=== PATIENT | female | born 1975 | race Caucasian/White ===

== ENCOUNTER → 2019-07-18 | Outpatient (CLI) | payer OTHER ==
--- NOTE | 2019-07-18 12:06 | MM ---
Reason for exam: screening (asymptomatic). Baseline mammogram. History: Took hormonal contraceptives for 2 years beginning at age 28. Physical Findings: Nurse Summary: 0.5-1.5cm nodule in the left breast at 11 o'clock and 3 o'clock (nurse kp). MG Screening Mammo w CAD Bilateral CC and MLO view(s) were taken. The breast tissue is heterogeneously dense. This may lower the sensitivity of mammography. No suspicious abnormality. These results were verbally communicated with the patient and result sheet given to the patient on 07/18/19. ASSESSMENT: Incomplete: need additional imaging evaluation, BI-RAD 0 RECOMMENDATION: Ultrasound of the left breast. (palpables)
--- NOTE | 2019-07-18 12:09 | USB ---
Reason for exam: additional evaluation requested from abnormal screening. History: Took hormonal contraceptives for 2 years beginning at age 28. Physical Findings: Breast exam preformed at baseline screening. US Breast Workup Limited LT Technologist: Connie Rosario Left limited breast ultrasound including focal area of concern, retroareolar and axilla demonstrates a 0.6 x 0.4 x 0.3cm intraductal debris versus mass at 3 o'clock, flow noted internally therefore biopsy recommended, a 1.7 x 1.5 x 0.5cm oval lipoma versus lobe, benign at 3 o'clock and a 0.5 x 0.5 x 0.4cm solid, mixed lesion at 11 o'clock palpable, biopsy recommended. These results were verbally communicated with the patient and result sheet given to the patient on 07/18/19. ASSESSMENT: Suspicious, BI-RAD 4 RECOMMENDATION: Ultrasound core biopsy of the left breast. Called Dr. Camargo's office with mammographic findings and has scheduled an appointment for the patient for 07/29/19 at 10:[address] Voss. Biopsy scheduled for 08/16/19 at 12:20. PRELIMINARY REPORT CALLED AND FAXED TO DR. VOSS ON 07/18/19.
== END | disposition home or self-care (01) ==
LOC: RADMAMWWP 08:14
PROVIDERS: ATTEND Family Medicine
DX: Z12.31 Encounter for screening mammogram for malignant neoplasm of breast (principal); R92.8 Other abnormal and inconclusive findings on diagnostic imaging of breast
CPT/HCPCS: 77067

== ENCOUNTER → 2019-07-28 | Outpatient (CLI) | payer OTHER ==
[2019-07-28 07:44] VITALS: BP 119/73; PULSE 60; RESP 16; TEMP 98.6
--- NOTE | 2019-07-28 08:36 | P.GSHP ---
History of Present Illness H&P Date: 07/28/19 Chief Complaint: abnormal ultrasound left breast Melvi is seen in consultation for DR. Camargo regarding an abnromal ultrasound of the left breast. Melvi is a 44-year-old white female status post bilateral mammogram on 2319. The tissues were felt to be dense and ultrasound of the left breast was recommended secondary to nurse noting a palpable nodule in the 11:00 and 3 o'clock position. Ultrasound revealed a 0.6 cm intraductal pre-versus mass at 3:00, and a 1.7 x 1.5 cm lipoma versus lobe benign-appearing at 3:00. Additionally there was a 0.5 x 0.4 cm solid mixed lesion at 11:00 Palpable abnormality for which biopsy was recommended. Does biopsy was recomme nded at the 0.6 cm intraductal debris filled lesion at 3:00 as well as the solid lesion at 11:00. The patient herself does not feel any discrete lumps or masses in her breasts. The mammogram and ultrasound for the first that the patient has had one done. Of significance is the fact that the patient delivered a baby at the age of 40 and then breast-fed. She had the radiographic studies done 6 months after she had stopped breast-feeding. The patient is not having any nipple discharge or skin changes of concern. She has no history of any recent trauma or infection in the breast. She does not feel any lumps masses or nodules herself for which she is concerned. Caffeine:none nicotine: none chocolate: occasional BCP: none hormones: none Patient takes essential women vitamin Family History: maternal great aunt: melanoma Hormonal History: menarche: 14 , breast fed: yes, first born at 27 menopasue;hysterectomy at 40 BCP: 6 months hormones: none Surgical History: 1. hysterectomy 2. D&C Medical History: none Social History: smoke: none alcohol: none drugs: none - Constitutional Constitutional: Denies chills, Denies fever - EENT Eyes: denies blurred vision, denies pain Ears: deny: decreased hearing, tinnitus Ears, nose, mouth and throat: Denies headache, Denies sore throat - Breasts Breasts: bilateral: as per HPI - Cardiovascular Cardiovascular: Denies chest pain, Denies shortness of breath - Respiratory Respiratory: Denies cough, Denies 7 - Gastrointestinal Gastrointestinal: Denies abdominal pain, Denies diarrhea, Denies nausea, Denies vomiting - Genitourinary (Female) Genitourinary: Denies dysuria, Denies hematuria - Menstruation Menstruation: Reports post hysterectomy - Musculoskeletal Musculoskeletal: Denies myalgias - Integumentary Integumentary: Denies pruritus, Denies rash - Neurological Neurological: Denies numbness, Denies weakness - Psychiatric Psychiatric: Denies anxiety, Denies depression - Endocrine Endocrine: Denies fatigue, Denies weight change - Hematologic/Lymphatic Comment: none - Allergic/Immunologic Allergic/Immunologic: Reports seasonal allergies Past Medical History Past Medical History: No Reported History History of Any Multi-Drug Resistant Organisms: None Reported Past Surgical History: Hysterectomy Additional Past Surgical History / Comment(s): D&C 11/24/2015; Hysterectomy 11/25/2015; Past Anesthesia/Blood Transfusion Reactions: No Reported Reaction Past Psychological History: No Psychological Hx Reported Smoking Status: Never smoker Past Alcohol Use History: None Reported Past Drug Use History: None Reported - Past Family History Father Family Medical History: No Reported History Mother Family Medical History: No Reported History Medications and Allergies Home Medications Medication Instructions Recorded Confirmed Type Multivit with Calcium,Iron,Min 1 each PO QAM 07/28/19 07/28/19 History [Women's Multivitamin] Allergies Allergy/AdvReac Type Severity Reaction Status Date / Time No Known Allergies Allergy Verified 07/28/19 07:32 Surgical - Exam Vital Signs Temp Pulse Resp BP Pulse Ox 98.6 F 60 16 119/73 100 07/28/19 07:34 07/28/19 07:34 07/28/19 07:34 07/28/19 07:34 07/28/19 07:34 BMI 24.8 - General well developed, well nourished, no distress - Eyes normal ocular movement - ENT no hearing loss, no congestion - Neck no masses, trachea midline - Respiratory normal expansion, normal respiratory effort, clear to auscultation - Cardiovascular Rhythm: regular Heart Sounds: normal: S1, S2 - Abdomen Abdomen: soft, non tender, no guarding, no rigid, no rebound - Integumentary normal turgor - Neurologic no disoriented, no combative - Musculoskeletal normal gait, normal posture - Psychiatric oriented to time, oriented to person, oriented to place, speech is normal, memory intact breast exam: Inspection: No skin changes of concern no nipple inversion Palpation: Right breast: Multi-positional exam fibrocystic changes no dominant masses or no dules of concern Right axilla: No adenopathy of concern Left breast: Multi-positional exam fibrocystic changes, increased nodularity at 11:00 and 3:00 appreciated suspect may be fibroglandular tissue Left axilla: No adenopathy of concern Results Mammogram and ultrasound results reviewed Assessment and Plan Assessment: Impression 1. Left breast ultrasound abnormality at 3:00 and 11:00 2. Probable increased nodularity left breast 3:00 and 11:00 most likely fibroglandular changes 3. Fibrocystic disease 4. Family history of melanoma in great maternal aunt 5. Patient status post hysterectomy Plan: 1. Left breast ultrasound-guided core biopsy at 3:00 and 11:00 2. Follow-up after ultrasound core biopsy 3. Patient is going to stay away from any plans vital estrogens Risk and benefits of the procedure discussed. Patient understands and wishes to proceed. CC: Dr. Queen encounter 45 minutes, > 50% of time in planning and counselling Time with Patient: Greater than 30
== END ==
LOC: WWCWWP 07:26
PROVIDERS: ATTEND Surgery
DX: Z53.9 Procedure and treatment not carried out, unspecified reason (principal)

== ENCOUNTER → 2019-08-16 | Day surgery (SDC) | payer OTHER ==
[2019-08-16 11:48] VITALS: BP 142/89; PULSE 88; RESP 16; TEMP 97.9
--- NOTE | 2019-08-17 10:08 | USB ---
EXAMINATION TYPE: US discontinued breast bx LT DATE OF EXAM: 08/16/2019 CLINICAL HISTORY: Previous abnormal ultrasound. TECHNIQUE: Ultrasound guided vaccuum assisted core biopsy of left breast. COMPARISON: NONE FINDINGS: The ultrasound guided core biopsy procedure was explained to the patient. The risks, benef its, alternatives were discussed. An informed consent was then obtained. Timeout was performed. Prescan imaging was performed. Consensus review of images was performed by radiology. The prominent duct with some internal debris was reidentified. Careful evaluation of the vascularity as vessels adjacent to but not within the structure. Finding appears benign. The second area of irregular hypodensity within the 11:00 left breast position is reevaluated. Small hypoechoic area measures 1 mm which previously measured 2 mm. The entire mass area has also diminishe d in size over the interval. No suspicious shadowing is evident. Findings are likely benign. Short-te rm follow-up is recommended. Procedure was terminated prior to skin incision. The findings were discussed with the patient in the recommendation to follow-up with ultrasound in 6 months was discussed. IMPRESSION: 1. Probably benign findings, left breast ultrasound. 2. Biopsy aborted. Recommendations: 1. Precautionary follow-up left breast ultrasound 6 months. 2. Patient should continue monthly self breast examination.
== END ==
LOC: RADUSWWP 11:17
PROVIDERS: ATTEND Surgery
DX: R92.8 Other abnormal and inconclusive findings on diagnostic imaging of breast (principal); Z53.8 Procedure and treatment not carried out for other reasons

== ENCOUNTER → 2020-02-16 | Outpatient (CLI) | payer OTHER ==
--- NOTE | 2020-02-16 09:57 | USB ---
Reason for exam: follow-up at short interval from prior study. History: US discontinued breast bx LT of the left breast, August 16, 2019. Took hormonal contraceptives for 2 years beginning at age 28. Physical Findings: Nurse did not find any significant physical abnormalities on exam. US Breast Limited LT Technologist: Connie Rosario Left limited breast ultrasound including focal area of concern, retroareolar and axilla demonstrates no cystic or solid lesion seen. 1 o'clock palpable. Scanned 10-3 o'clock. Following up areas at 11 o'clock and 3 o'clock. 1 o'clock at a palpable oval, isoechoic, circumscribed, likely lipoma 2.0 x 0.5cm, stable from 07/18/19. 2 o'clock mild duct ectasia, improved from prior. These results were verbally communicated with the patient and result sheet given to the patient on 02/16/20. ASSESSMENT: Benign, BI-RAD 2 RECOMMENDATION: Return to routine screening mammogram schedule for both breasts. Back on schedule for July 2020. Manage on a clinical basis with regard to any suspicious palpable.
== END | disposition home or self-care (01) ==
LOC: RADUSWWP 07-28 07:12
PROVIDERS: ATTEND Radiology Body Imaging
DX: R92.8 Other abnormal and inconclusive findings on diagnostic imaging of breast (principal); N63.20 Unspecified lump in the left breast, unspecified quadrant

== ENCOUNTER → 2020-07-19 | Outpatient (CLI) | payer OTHER ==
--- NOTE | 2020-07-20 14:34 | MM ---
Reason for exam: screening (asymptomatic). Last mammogram was performed 1 year ago. History: US discontinued breast bx LT of the left breast, August 16, 2019. Took hormonal contraceptives for 2 years beginning at age 28. Physical Findings: A clinical breast exam by your physician is recommended on an annual basis and results should be correlated with mammographic findings. MG 3D Screening Mammo W/Cad Bilateral CC and MLO view(s) were taken. Prior study comparison: July 18, 2019, bilateral MG screening mammo w CAD. The breast tissue is extremely dense which could obscure a lesion on mammography. No significant changes when compared with prior studies. ASSESSMENT: Benign, BI-RAD 2 RECOMMENDATION: Routine screening mammogram of both breasts in 1 year.
== END | disposition home or self-care (01) ==
LOC: RADMAMWWP 09:28
PROVIDERS: ATTEND Family Medicine
DX: Z12.31 Encounter for screening mammogram for malignant neoplasm of breast (principal)
CPT/HCPCS: 77063; 77067

== ENCOUNTER 2023-02-18 10:07 | Day surgery (SDC) | payer OTHER ==
[~2023-02-18 10:07] MED LIST: LACTATED RINGERS 1,000 ML IV SCH; LIDOCAINE 1% (10MG/ML) FOR IV START INTRADERMA PRN
[2023-02-18 10:41] VITALS: RESP 16; TEMP 97.2
[2023-02-18] MEDS ORDERED: PROPOFOL 10 MG/ML 20 ML VIAL IV ONE (11:00)
[2023-02-18] MEDS ORDERED: LIDOCAINE 2% INJ 20 MG/ML (2 ML VIAL) ONE (11:00)
--- NOTE | 2023-02-18 11:17 | P.PCN ---
Date of Procedure: 02/18/23 Procedure(s) Performed: BRIEF HISTORY: Patient is a 47-year-old pleasant white female scheduled for an elective colonoscopy as a part of screening for colon cancer. PROCEDURE PERFORMED: Colonoscopy. PREOPERATIVE DIAGNOSIS: Screening for colon cancer. IV sedation per Anesthesia. PROCEDURE: After informed consent was obtained, the patient, was brought into the endoscopy unit. IV sedation was administered by Anesthesia under continuous monitoring. Digital rectal examination was normal. Initially the Olympus CF-160 flexible video colonoscope was then inserted in the rectum, gradually advanced into the cecum without any difficulty. Careful examination was performed as the scope was gradually being withdrawn. Ileocecal valve and the appendiceal orifice were visualized and appeared normal. Prep was excellent. Mucosa of the cecum, ascending colon, transverse colon, descending colon, sigmoid colon, and rectum appeared normal. Retroflexion was performed in the rectum and no lesions were seen. The patient tolerated the procedure well. IMPRESSION: Normal-appearing colon from rectum to cecum with no evidence of colorectal neoplasia. RECOMMENDATIONS: Findings of this examination were discussed with the patient as well as a family. She was advised to have a repeat screening colonoscopy in 10 years..
[2023-02-18 11:55] VITALS: BP 103/63; PULSE 78
== END 2023-02-18 12:13 | disposition home or self-care (01) ==
LOC: ORWHC2ENDO 10:07
PROVIDERS: ATTEND Internal Medicine Gastroenterology
DX: Z12.11 Encounter for screening for malignant neoplasm of colon (principal); E78.5 Hyperlipidemia, unspecified; Z79.899 Other long term (current) drug therapy
CPT/HCPCS: 45378; J2704; J2001

== ENCOUNTER → 2023-10-30 | Outpatient (CLI) | payer OTHER ==
--- NOTE | 2023-11-02 16:14 | MM ---
Reason for Exam: Screening (asymptomatic). Last mammogram was performed 1 year(s) and 3 month(s) ago. Patient History: Menarche at age 14. First Full-Term at age 27. Hysterectomy at age 40. Patient has history of breast feeding. Hormonal Contraceptives for 2 years from age 28 until age 30. 08/16/2019, discontinued breast bx LT on the left side. Risk Values: Roshni 5 year model risk: 0.9%. NCI Lifetime model risk: 9.3%. Prior Study Comparison: 07/19/2020 Bilateral Screening Mammogram, [facility]. 07/26/2021 Bilateral Screening Mammogram, [facility]. 07/30/2022 Bilateral MG 3D screening mammo w/cad, [facility]. Tissue Density: The breasts are extremely dense, which lowers the sensitivity of mammography. Findings: Analyzed By CAD. The pattern is symmetrical. There are segmental calcifications within the posterior left breast similar to comparison study 2022. These are more evident than 2021. Magnification views are recommended. Right breast: No suspicious groups of microcalcifications, spiculated or lobular masses, architectural distortion or other secondary signs of malignancy are mammographically apparent. Overall Assessment: Incomplete: need additional imaging evaluation, BI-RAD 0 Management: Diagnostic Mammogram of the left breast. A negative mammogram report should not preclude additional follow up of suspicious palpable abnormalities. Patient should continue monthly self breast exam. A clinical breast exam by your physician is recommended on an annual basis and results should be correlated with mammographic findings. Note on Roshni scores and lifetime risk: 1. A Roshni score greater than 3% is considered moderate risk. If this is the case, consider specialist referral to assess eligibility for a risk reducing agent. 2. If overall lifetime risk for the development of breast cancer is 20% or higher, the patient may qualify for future screening with alternating mammogram and breast MRI. Electronically signed and approved by: Alton Jenkins D.O. Radiologis
== END | disposition home or self-care (01) ==
LOC: RADMAMWWP 08:44
PROVIDERS: ATTEND Family Medicine
DX: Z12.31 Encounter for screening mammogram for malignant neoplasm of breast (principal)
CPT/HCPCS: 77063; 77067

== ENCOUNTER → 2023-11-06 | Outpatient (CLI) | payer OTHER ==
--- NOTE | 2023-11-06 10:42 | MM ---
Reason for Exam: Additional evaluation requested from abnormal screening. Last screening mammogram was performed less than 1 month ago. Patient History: Menarche at age 14. First Full-Term at age 27. Hysterectomy at age 40. Patient has history of breast feeding. Hormonal Contraceptives for 2 years from age 28 until age 30. 08/16/2019, US discontinued breast bx LT on the left side. Risk Values: Roshni 5 year model risk: 0.9%. NCI Lifetime model risk: 9.3%. Prior Study Comparison: 07/26/2021 Bilateral Screening Mammogram, [facility]. 07/30/2022 Bilateral MG 3D screening mammo w/cad, [facility]. 10/30/2023 Bilateral MG 3D screening mammo w/cad, [facility]. Tissue Density: Left: The breasts are heterogeneously dense, which may obscure small masses. Findings: Analyzed By CAD. Pattern appears stable. The craniocaudal magnification view there are some punctate calcifications which correspond to the earlier calcifications. However, no looping of calcifications is evident on the medial lateral view. Findings are likely multilevel. Precautionary 6 month follow-up is recommended. Overall Assessment: Probably benign, BI-RAD 3 Management: Diagnostic Mammogram of the left breast in 6 months. A negative mammogram report should not preclude additional follow up of suspicious palpable abnormalities. Patient should continue monthly self breast exam. A clinical breast exam by your physician is recommended on an annual basis and results should be correlated with mammographic findings. Note on Roshni scores and lifetime risk: 1. A Roshni score greater than 3% is considered moderate risk. If this is the case, consider specialist referral to assess eligibility for a risk reducing agent. 2. If overall lifetime risk for the development of breast cancer is 20% or higher, the patient may qualify for future screening with alternating mammogram and breast MRI. Electronically signed and approved by: Alton Jenkins D.O. Radiologis
== END | disposition home or self-care (01) ==
LOC: RADMAMWWP 09:03
PROVIDERS: ATTEND Family Medicine
DX: R92.332 Mammographic heterogeneous density, left breast (principal); R92.1 Mammographic calcification found on diagnostic imaging of breast
CPT/HCPCS: 77061; 77065